=== PATIENT | male | born 1950 | race Caucasian/White ===

== ENCOUNTER → 2021-09-19 | Outpatient (CLI) | payer MEDICARE ==
--- NOTE | 2021-09-19 12:30 | RAD ---
EXAM: Nuclear bone scan. HISTORY: Prostate cancer. TECHNIQUE: Following the intravenous injection of 23 mCi of Tc 99m labeled methylene diphosphonate (M DP), whole body imaging was performed. COMPARISON: None. FINDINGS: There is no abnormal radiotracer activity to suggest osseous metastatic disease. There is d egenerative activity involving the knees, feet and shoulders. There is focal radiotracer activity at the injection site within the right antecubital fossa. IMPRESSION: No convincing scintigraphic evidence of osseous metastatic disease. Electronically signed by: Ricarda Zimmer MD (09/19/2021 12:27 PM) [id number]
== END ==
LOC: NM 08:07
PROVIDERS: ATTEND Specialist
DX: C61 Malignant neoplasm of prostate (principal)
CPT/HCPCS: 78306; A9503

== ENCOUNTER 2021-09-25 14:36 | Emergency (ER) | payer MEDICARE ==
[~2021-09-25] VITALS: Ht 175.3 cm; Wt 91.8 kg
[2021-09-25 14:53] VITALS: BP 163/84
[2021-09-25] MEDS ORDERED: PRED50TA PO (15:38)
--- NOTE | 2021-09-25 15:40 | PHYS DOC ---
Past History Past Surgical History: No Surgical History Alcohol Use: None General Adult EDM: Chief Complaint: BACK PAIN - NO INJURY HPI: HPI: 71-year-old male presents with low back pain and right-sided sciatica. Patient states he has never had pain like this before. He describes it as a cramping pain in the goes in waves down his leg all the way to his foot. When it comes on it is an 8 out of 10. He has some stiffness when he first stands up and starts to walk. He admits that this all started after a long car ride after a day of golf. He has not consistently tried any medications. He denies loss of bowel or bladder. He has no decreased sensation or strength. Review of Systems: Review of Systems: Constitutional: Denies fever or chills Eyes: Denies change in visual acuity HENT: Denies nasal congestion or sore throat Respiratory: Denies cough or shortness of breath Cardiovascular: Denies chest pain or edema GI: Denies abdominal pain, nausea, vomiting, bloody stools or diarrhea : Denies dysuria Musculoskeletal: Right low back pain Integument: Denies rash Neurologic: Denies headache, focal weakness or sensory changes Endocrine: Denies polyuria or polydipsia Lymphatic: Denies swollen glands Psychiatric: Denies depression or anxiety Allergies: Allergies: Allergies Coded Allergies Type Severity Reaction Last Updated Verified Sulfa (Sulfonamide Antibiotics) Allergy Unknown 09/25/21 Yes Physical Exam: PE: Constitutional: Well developed, well nourished, no acute distress, non-toxic appearance. [] HENT: Normocephalic, atraumatic, bilateral external ears normal, oropharynx moist, no oral exudates, nose normal. [] Eyes: PERRLA, EOMI, conjunctiva normal, no discharge. [] Neck: Normal range of motion, no tenderness, supple, no stridor. [] Cardiovascular:Heart rate regular rhythm, no murmur [] Lungs & Thorax: Bilateral breath sounds clear to auscultation [] Abdomen: Bowel sounds normal, soft, no tenderness, no masses, no pulsatile mas ses. [] Skin: Warm, dry, no erythema, no rash. [] Back: Right paralumbar muscle spasm, tenderness. [] Extremities: No tenderness, no cyanosis, no clubbing, ROM intact, no edema. [] Neurologic: Alert and oriented X 3, normal motor function, normal sensory function, no focal deficits noted. [] Psychologic: Affect normal, judgement normal, mood normal. [] Current Patient Data: Vital Signs: Vital Signs Date Time Temp Pulse Resp B/P (MAP) Pulse Ox O2 Delivery O2 Flow Rate FiO2 09/25/21 14:53 98.2 86 16 163/84 (110) 99 EKG: EKG: [] Radiology/Procedures: Radiology/Procedures: [] Heart Score: C/O Chest Pain: N/A Risk Factors: Risk Factors: DM, Current or recent (<one month) smoker, HTN, HLP, family history of CAD, obesity. Risk Scores: Score 0 - 3: 2.5% MACE over next 6 weeks - Discharge Home Score 4 - 6: 20.3% MACE over next 6 weeks - Admit for Clinical Observation Score 7 - 10: 72.7% MACE over next 6 weeks - Early Invasive Strategies Course & Med Decision Making: Course & Med Decision Making Pertinent Labs and Imaging studies reviewed. (See chart for details) The patient appears to be having low back strain with sciatic symptoms. I will treat him with 5 days of prednisone. I have advised that he skipped his weekly golf outing for this week. If his symptoms persist he will will discuss with his primary care physician and consider physical therapy. He is stable for discharge at this time. [] [place] Disclaimer: Adam Disclaimer: This electronic medical record was generated, in whole or in part, using a voice recognition dictation system. Departure Departure: Impression: Primary Impression: Low back pain Qualified Codes: M54.41 - Lumbago with sciatica, right side Disposition: HOME / SELF CARE / HOMELESS Condition: STABLE Referrals: BHAVYA GRANT MD (PCP) Patient Instructions: Low Back Strain with Rehab-SportsMed, Sciatica, [id number] Scripts Prednisone (PREDNISONE) 50 Mg Tablet 1 TAB PO DAILY for sciatica, #5 TAB Prov: EVERT RICCI DO 09/25/21 EVERT RICCI DO Sep 25, 2021 15:40
== END 2021-09-25 15:54 | disposition home or self-care (01) ==
LOC: ER 14:39
DX: M54.41 Lumbago with sciatica, right side (principal); Z88.2 Allergy status to sulfonamides
CPT/HCPCS: 99283